=== PATIENT | female | born 1940 | race Caucasian/White ===

== ENCOUNTER 2021-10-29 13:01 | Emergency (ER) | payer MEDICARE, MEDICAID ==
[~2021-10-29] VITALS: Ht 152.4 cm; Wt 45.4 kg
--- NOTE | 2021-10-29 13:11 | NUR ---
[email or web address], medical screening exam in progress
[2021-10-29] MEDS ORDERED: TRAZ-182 PO (13:13)
[2021-10-29] MEDS ORDERED: OMEP20TA5 PO (13:13)
[2021-10-29] MEDS ORDERED: LEVE750T10 PO (13:13)
[2021-10-29] MEDS ORDERED: BUPR-96 PO (13:13)
[2021-10-29] MEDS ORDERED: ASPI81TA31 PO (13:13)
[2021-10-29] MEDS ORDERED: MULT-16 (13:13)
[2021-10-29] MEDS ORDERED: ARIP10TA9 PO (13:13)
[2021-10-29] MEDS ORDERED: ACETAMINOPHEN 325 MG TABLET PO ONE (13:15)
[2021-10-29] MEDS ORDERED: MORPHINE SULFATE 2 MG/1 ML DISP.SYRIN IV ONE (13:15)
[2021-10-29] MEDS ORDERED: ACETAMINOPHEN 325 MG TABLET ONE (13:37)
[2021-10-29] MEDS ORDERED: MORPHINE SULFATE 2 MG/1 ML DISP.SYRIN ONE (13:37)
[2021-10-29 13:43] LABS: HEMATOCRIT 37.3 % (31.2-41.9); MEAN CORPUSCULAR HEMOGLOBIN 32.4 uug (24.7-32.8); PLATELET COUNT (AUTO) 198 K/uL (179-408)
[2021-10-29 13:48] LABS: CARBON DIOXIDE 33 mmol/L (21-32); CHLORIDE 100 mmol/L (98-107); CREATININE 0.8 mg/dL (0.6-1.3); GLUCOSE 87 mg/dL (74-106); POTASSIUM 4.8 mmol/L (3.5-5.1); UREA NITROGEN, BLOOD 22 mg/dL (7-18)
[2021-10-29 13:57] LABS: ALANINE AMINOTRANSFERASE 19 U/L (14-59); ALKALINE PHOSPHATASE 75 U/L (50-136); ASPARTATE AMINOTRANSFERASE 18 U/L (15-37); BILIRUBIN,DIRECT 0.1 mg/dL (0.0-0.2); BILIRUBIN,TOTAL 0.2 mg/dL (0.2-1.0); TOTAL PROTEIN, SERUM 6.8 g/dL (6.4-8.2)
[2021-10-29 14:02] LABS: *BILIRUBIN,URIN NEGATIVE (NEGATIVE); *BLOOD, URINE NEGATIVE (NEGATIVE); *CLARITY,URINE CLEAR (CLEAR); *COLOR,URINE YELLOW (YELLOW); *KETONES,URINE NEGATIVE (NEGATIVE); *UROBILINOGEN,URINE 0.2 E.U./dl (NORMAL); LEUKOCYTE ESTERASE ,URINE 2+ (NEGATIVE); NITRITE, URINE NEGATIVE (NEGATIVE); UGLUCOSE NEGATIVE (NEGATIVE)
--- NOTE | 2021-10-29 14:28 | NUR ---
Patient is resting comfortably on gurney with eyes closed. PATIENT IS PAIN FREE AT THIS TIME.
[2021-10-29] MEDS ORDERED: NITROFURANTOIN/NITROFURAN MAC 100 MG CAPSULE PO ONE ×2 (14:30→14:33)
--- NOTE | 2021-10-29 15:26 | NUR ---
ER registration/admitting staff Jaquan notified re: plan to admit
--- NOTE | 2021-10-29 15:44 | NUR ---
Patient refused to be admitted. notified.
[2021-10-29] MEDS ORDERED: ACET-2154 PO (16:07)
[2021-10-29] MEDS ORDERED: NITR100C6 PO (16:07)
--- NOTE | 2021-10-29 16:18 | NUR ---
IV removed. Catheter intact and site benign. Pressure and 4x4 gauze applied to site. No bleeding noted. Patient discharged to home in stable condition. Written and verbal after care instructions given. Patient verbalized understanding and compliance of instructions. Stressed follow up with primar doctor or return to ER for worsening s/s. SBAR given to LEDA Morales of [id number].
[2021-10-29 17:22] LABS: BACTERIA,URINE MODERATE /HPF (NONE SEEN); RBC,URINE 0-3 /HPF (0-3); SQUAMOUS EPITHELIAL CELL,UR FEW /HPF (NONE SEEN); WBC,URINE 20-50 /HPF (0-3)
== END 2021-10-29 16:32 ==
LOC: ER 13:01
DX: N39.0 Urinary tract infection, site not specified (principal); M79.642 Pain in left hand; S62.301A Unspecified fracture of second metacarpal bone, left hand, initial encounter for closed fracture; W23.0XXA Caught, crushed, jammed, or pinched between moving objects, initial encounter; Y92.129 Unspecified place in nursing home as the place of occurrence of the external cause; K51.90 Ulcerative colitis, unspecified, without complications; Z79.82 Long term (current) use of aspirin; Z79.899 Other long term (current) drug therapy; Z90.710 Acquired absence of both cervix and uterus; Z20.822 Contact with and (suspected) exposure to COVID-19
CPT/HCPCS: 29130; 36415; 71045; 73130; 80048; 80076; 81001; 84484; 85025; 87086; 87426; 93005; 96374; 99285; J2270; A4663